=== PATIENT | male | born 1945 | race Hispanic/Latino ===

== ENCOUNTER → 2017-08-10 | Outpatient (CLI) | payer OTHER, MEDICARE ==
[~2017-08-10] MED LIST: AMLO10TA2 PO; ASPI-1181 PO; CLON0.2T PO; CLOP75TA14 PO; FURO20TA4 PO; HYDR12.530 PO; LISI-613 PO; METF10004 PO; METO-409 PO
[2017-08-10 10:11] LABS: CREATININE 2.1 mg/dL (0.5-1.5); PHOSPHORUS 3.4 mg/dL (2.5-4.9)
[2017-08-10 10:27] LABS: EOSINOPHILS % (AUTO) 1.7 % (0.0-8.0); HEMATOCRIT 35.5 % (42-54); LYMPHOCYTES % (AUTO) 13.5 % (21.0-51.0); MEAN CORPUSCULAR HEMOGLOBIN 28.4 pg (27.0-33.0); MEAN CORPUSCULAR HGB CONC 33.9 g/dL (32.0-36.0); MEAN CORPUSCULAR VOLUME 83.8 fL (79-99); MONOCYTES % (AUTO) 6.9 % (3.0-13.0); NEUTROPHILS % (AUTO) 76.9 % (40.0-77.0); PLATELET COUNT (AUTO) 206 K/uL (130-400); RED BLOOD CELL COUNT(AUTO) 4.23 MIL/uL (4.50-6.20); RED CELL DISTRIBUTION WIDTH 15.8 % (11.0-15.5); WHITE BLOOD COUNT (AUTO) 10.3 K/uL (4.8-10.8)
== END | disposition home or self-care (01) ==
LOC: LAB 09:24
PROVIDERS: ATTEND Internal Medicine Nephrology
DX: N18.3 Chronic kidney disease, stage 3 (moderate) (principal); D63.1 Anemia in chronic kidney disease
CPT/HCPCS: 36415; 80048; 84100; 85025

== ENCOUNTER → 2017-08-13 | Outpatient (CLI) | payer OTHER, MEDICARE | END | disposition home or self-care (01) | LOC: LAB 12:49 | PROVIDERS: ATTEND Internal Medicine Cardiovascular Disease | DX: I50.20 Unspecified systolic (congestive) heart failure (principal); I73.9 Peripheral vascular disease, unspecified | CPT/HCPCS: 36415; 83880 ==

== ENCOUNTER → 2017-08-29 | Outpatient (CLI) | payer OTHER, MEDICARE | END | disposition home or self-care (01) | LOC: RAH 08:19 | PROVIDERS: ATTEND Internal Medicine Cardiovascular Disease | DX: I50.20 Unspecified systolic (congestive) heart failure (principal) | CPT/HCPCS: 93306 ==

== ENCOUNTER 2017-09-25 11:06 | Inpatient (IN) | payer OTHER, MEDICARE ==
[2017-09-25] VITALS (17 sets, daily range): BP systolic 116–162; BP diastolic 60–92
[~2017-09-25] VITALS: Ht 170.2 cm; Wt 83.1 kg
[2017-09-25] MEDS ORDERED: METOPROLOL TARTRATE 1 MG/ML 5ML VIAL IV ONE ×3 (11:10→12:29)
[2017-09-25] MEDS ORDERED: ASPIRIN 81MG TAB.CHEW ONE (11:10)
[2017-09-25] MEDS ORDERED: ISOVUE-370 50ML VIAL IV ONE (11:19)
[2017-09-25] MEDS ORDERED: HEPARIN SODIUM 1000UNIT/ML 10ML VIAL ONE (11:19)
[2017-09-25] MEDS ORDERED: BIVALIRUDIN 250 MG/VIAL IV ONE (11:19)
[2017-09-25] MEDS ORDERED: LIDOCAINE HCL 2% 20ML ONE (11:19)
[2017-09-25] MEDS ORDERED: IOPAMIDOL-370 100 ML VIAL IV ONE (11:19)
[2017-09-25] MEDS ORDERED: NITROGLYCERIN 5 MG/ML 10 ML VIAL IV ONE (11:19)
[2017-09-25 11:21] LABS: BASOPHILS % (AUTO) 1.2 % (0.0-5.0); EOSINOPHILS % (AUTO) 0.9 % (0.0-8.0); HEMATOCRIT 41.1 % (42-54); LYMPHOCYTES % (AUTO) 27.7 % (21.0-51.0); MEAN CORPUSCULAR HEMOGLOBIN 29.1 pg (27.0-33.0); MEAN CORPUSCULAR HGB CONC 34.6 g/dL (32.0-36.0); MEAN CORPUSCULAR VOLUME 84.2 fL (79-99); MONOCYTES % (AUTO) 6.8 % (3.0-13.0); NEUTROPHILS % (AUTO) 63.4 % (40.0-77.0); NUCLEATED RED BLOOD CELLS 0.1 % (0.0-0.19); PLATELET COUNT (AUTO) 193 K/uL (130-400); RED BLOOD CELL COUNT(AUTO) 4.88 MIL/uL (4.50-6.20); RED CELL DISTRIBUTION WIDTH 14.8 % (11.0-15.5)
[2017-09-25] MEDS ORDERED: ATROPINE SULFATE 0.1 MG/ML 10 ML SYG IVP ONE (11:24)
[2017-09-25] MEDS ORDERED: DOPAMINE HCL 400 MG/D5%-WATER 0 ML IV ONE (11:24)
[2017-09-25 11:56] LABS: ALBUMIN 3.8 g/dL (3.5-5.0); BILIRUBIN,TOTAL 0.4 mg/dL (0.2-1.0); CREATININE 2.6 mg/dL (0.5-1.5); INR 0.89 (0.85-1.15); MAGNESIUM 1.7 mg/dL (1.80-2.40); PARTIAL THROMBOPLASTIN TIME 25.6 SEC (26.3-35.5); POTASSIUM 4.5 mmol/L (3.5-5.1); PROTHROMBIN TIME 9.4 SEC (9.6-11.6); TOTAL PROTEIN, SERUM 8.1 g/dL (6.0-8.3)
[2017-09-25] MEDS ORDERED: MORPHINE SULFATE 2 MG/ML 1ML SYG ONE ×4 (12:08→13:35)
[2017-09-25] MEDS ORDERED: HYDRALAZINE HCL 20 MG/ML VIAL ONE (12:19)
[2017-09-25] MEDS ORDERED: NITROGLYCERIN 50 MG/D5% WATER 1 BOT ONE (12:21)
[2017-09-25] MEDS ORDERED: KETOROLAC TROMETHAMINE 30MG/ML ONE (12:37)
[2017-09-25] MEDS ORDERED: SODIUM CHLORIDE 0.9% 1000ML 1,000 ML IV SCH (13:24)
[2017-09-25] MEDS ORDERED: MORPHINE SULFATE 5 MG/ML VIAL IVP SCH ×3 (13:30→15:15)
[2017-09-25] MEDS ORDERED: LIDOCAINE HCL-MPF 1% 2ML VIAL IV PRN (13:30)
[2017-09-25] MEDS ORDERED: POTASSIUM CHLORIDE 20MEQ/100ML 100 ML IV PRN (13:30)
[2017-09-25] MEDS ORDERED: ACETAMINOPHEN-CODEINE 300/30MG TAB PO PRN ×2 (13:30)
[2017-09-25] MEDS ORDERED: ONDANSETRON HCL MDV 20ML 2 MG/ML VIAL IVP PRN (13:30)
[2017-09-25] MEDS ORDERED: TEMAZEPAM 30 MG CAP PO PRN (13:30)
[2017-09-25] MEDS ORDERED: NITROGLYCERIN 50 MG/D5% WATER 1 BOT IV PRN (13:30)
[2017-09-25] MEDS ORDERED: ONDANSETRON HCL MDV 20ML 2 MG/ML VIAL IVP SCH (13:30)
[2017-09-25] MEDS ORDERED: CLOPIDOGREL BISULFATE 300 MG TAB PO SCH (13:30)
[2017-09-25] MEDS ORDERED: MAG HYDROX/AL HYDROX/SIMETH ES 30 ML SUSP UDCUP ONE (13:38)
[2017-09-25] MEDS ORDERED: LIDOCAINE HCL 2% VISCOUS 15 ML UDCUP ONE (13:38)
[2017-09-25] MEDS ORDERED: ONDANSETRON HCL 4 MG/2 ML VIAL ONE (13:54)
[2017-09-25] MEDS ORDERED: CLOPIDOGREL BISULFATE 300 MG TAB ONE (14:07)
[2017-09-25] MEDS ORDERED: AMLO10TA2 PO (15:12)
[2017-09-25] MEDS ORDERED: METO-409 PO (15:12)
[2017-09-25] MEDS ORDERED: METF10004 PO (15:12)
[2017-09-25] MEDS ORDERED: FURO20TA4 PO (15:12)
[2017-09-25] MEDS ORDERED: CLON0.2T PO (15:12)
[2017-09-25] MEDS ORDERED: CLOP75TA14 PO (15:12)
[2017-09-25] MEDS ORDERED: ASPI-1181 PO (15:12)
[2017-09-25] MEDS ORDERED: LISI-613 PO (15:12)
[2017-09-25] MEDS ORDERED: HYDR12.530 PO (15:12)
[2017-09-25] MEDS ORDERED: MORPHINE SULFATE 2 MG/ML 1ML SYG IVP SCH (15:15)
[2017-09-25] MEDS: INSULIN HUMULIN R 100 UNIT/ML 3ML SQ SCH ×2 (16:29→20:28)
[2017-09-25] MEDS ORDERED: NITROGLYCERIN 0.4 MG SL TAB SL PRN ×2 (20:00→20:15)
[2017-09-25] MEDS ORDERED: CLONIDINE HCL 0.1 MG TABLET PO PRN ×2 (20:00→20:15)
[2017-09-25] MEDS ORDERED: LACTULOSE 20 GM/30 ML UDCUP PO PRN ×2 (20:00→20:15)
[2017-09-25] MEDS ORDERED: MORPHINE SULFATE 2 MG/ML 1ML SYG IVP PRN (20:00)
[2017-09-25] MEDS ORDERED: ACETAMINOPHEN 325 MG TAB PO PRN ×2 (20:15)
[2017-09-25] MEDS: METOPROLOL TARTRATE 50 MG TAB PO SCH (20:29)
[2017-09-25] MEDS ORDERED: METOCLOPRAMIDE 10 MG/2 ML VIAL IVP PRN (22:45)
[2017-09-25] MEDS ORDERED: MAGNESIUM 2GM PREMIX 50ML 50 ML IV PRN (22:45)
[2017-09-25] MEDS ORDERED: MAGNESIUM 2GM PREMIX 50ML 50 ML IV ONE (22:53)
[2017-09-26] VITALS (24 sets, daily range): BP systolic 101–157; BP diastolic 47–80
[2017-09-26 05:06] LABS: HEMATOCRIT 31.6 % (42-54); MEAN CORPUSCULAR HEMOGLOBIN 30.1 pg (27.0-33.0); MEAN CORPUSCULAR HGB CONC 36.1 g/dL (32.0-36.0); MEAN CORPUSCULAR VOLUME 83.4 fL (79-99); PLATELET COUNT (AUTO) 151 K/uL (130-400); RED BLOOD CELL COUNT(AUTO) 3.79 MIL/uL (4.50-6.20); RED CELL DISTRIBUTION WIDTH 14.9 % (11.0-15.5); WHITE BLOOD COUNT (AUTO) 8.9 K/uL (4.8-10.8)
[2017-09-26 05:44] LABS: CREATINE KINASE MB 249.6 ng/mL (0.5-3.6); CREATININE 2.5 mg/dL (0.5-1.5); POTASSIUM 4.8 mmol/L (3.5-5.1)
[2017-09-26] MEDS: INSULIN HUMULIN R 100 UNIT/ML 3ML SQ SCH ×4 (06:09→20:53)
[2017-09-26 06:21] LABS: TROPONIN I 163.15 ng/mL (0.00-0.06)
[2017-09-26] MEDS: ASPIRIN 81MG TAB.CHEW PO SCH (08:40)
[2017-09-26] MEDS: CLOPIDOGREL BISULFATE 75 MG TAB PO SCH (08:40)
[2017-09-26] MEDS: METOPROLOL TARTRATE 50 MG TAB PO SCH ×2 (08:40→20:53)
[2017-09-26] MEDS: PANTOPRAZOLE SODIUM 40 MG TABLET.DR PO SCH (08:40)
[2017-09-27 03:40] VITALS: BP 146/63
[2017-09-27 03:44] LABS: CREATININE 2.5 mg/dL (0.5-1.5); POTASSIUM 4.4 mmol/L (3.5-5.1)
[2017-09-27] MEDS: INSULIN HUMULIN R 100 UNIT/ML 3ML SQ SCH ×2 (06:31→11:30)
[2017-09-27 07:39] VITALS: BP 146/74
[2017-09-27] MEDS: CLOPIDOGREL BISULFATE 75 MG TAB PO SCH (08:25)
[2017-09-27] MEDS: PANTOPRAZOLE SODIUM 40 MG TABLET.DR PO SCH (08:25)
[2017-09-27] MEDS: METOPROLOL TARTRATE 50 MG TAB PO SCH (08:25)
[2017-09-27] MEDS: ASPIRIN 81MG TAB.CHEW PO SCH (08:25)
== END 2017-09-27 13:00 | disposition home or self-care (01) | DRG 246 ==
LOC: EDH 11:06 → INTOOBSV 11:22 → EDHIP 11:22 → OBSVTOIN 11:22 → 2CH 14:26 → 2DH 09-26 23:18
PROVIDERS: ADMIT Family Medicine; ATTEND Family Medicine
PROC: 4A023N7 Measurement of Cardiac Sampling and Pressure, Left Heart, Percutaneous Approach (ICD-10-PCS; principal; 2017-09-25)
PROC: 027034Z Dilation of Coronary Artery, One Artery with Drug-eluting Intraluminal Device, Percutaneous Approach (ICD-10-PCS; 2017-09-25)
PROC: B2131ZZ Fluoroscopy of Multiple Coronary Artery Bypass Grafts using Low Osmolar Contrast (ICD-10-PCS; 2017-09-25)
PROC: B2111ZZ Fluoroscopy of Multiple Coronary Arteries using Low Osmolar Contrast (ICD-10-PCS; 2017-09-25)
PROC: B2151ZZ Fluoroscopy of Left Heart using Low Osmolar Contrast (ICD-10-PCS; 2017-09-25)
DX: T82.855A Stenosis of coronary artery stent, initial encounter (principal); I21.3 ST elevation (STEMI) myocardial infarction of unspecified site; E11.22 Type 2 diabetes mellitus with diabetic chronic kidney disease; E11.51 Type 2 diabetes mellitus with diabetic peripheral angiopathy without gangrene; I12.9 Hypertensive chronic kidney disease with stage 1 through stage 4 chronic kidney disease, or unspecified chronic kidney disease; E78.5 Hyperlipidemia, unspecified; I16.0 Hypertensive urgency; I25.10 Atherosclerotic heart disease of native coronary artery without angina pectoris; I25.2 Old myocardial infarction; I44.7 Left bundle-branch block, unspecified; N18.9 Chronic kidney disease, unspecified; Z87.891 Personal history of nicotine dependence; Z95.1 Presence of aortocoronary bypass graft; Z95.5 Presence of coronary angioplasty implant and graft; Z96.653 Presence of artificial knee joint, bilateral; Y83.9 Surgical procedure, unspecified as the cause of abnormal reaction of the patient, or of later complication, without mention of misadventure at the time of the procedure; Y92.89 Other specified places as the place of occurrence of the external cause; Z28.21 Immunization not carried out because of patient refusal
CPT/HCPCS: 36415; 71045; 80048; 80053; 80061; 82550; 82553; 82947; 82948; 83735; 83874; 84484; 85025; 85027; 85610; 85730; 92978; 93005; 93459; C1725; C1769; C1887; C1894; C9600; J0360; J0461; J0583; J1265; J1644; J1815; J1885; J2405; J3475; J3490; J7030; Q9967

== ENCOUNTER → 2017-11-08 | Outpatient (CLI) | payer MEDICARE, OTHER ==
[~2017-11-08] MED LIST changes: -METF10004 PO
[2017-11-08 10:21] LABS: HEMATOCRIT 37.7 % (42-54); LYMPHOCYTES % (AUTO) 16.8 % (21.0-51.0); MEAN CORPUSCULAR HEMOGLOBIN 30.3 pg (27.0-33.0); MEAN CORPUSCULAR HGB CONC 35.1 g/dL (32.0-36.0); MEAN CORPUSCULAR VOLUME 86.5 fL (79-99); MONOCYTES % (AUTO) 7.6 % (3.0-13.0); NEUTROPHILS % (AUTO) 72.6 % (40.0-77.0); PLATELET COUNT (AUTO) 215 K/uL (130-400); RED BLOOD CELL COUNT(AUTO) 4.36 MIL/uL (4.50-6.20); RED CELL DISTRIBUTION WIDTH 14.6 % (11.0-15.5)
[2017-11-08 10:41] LABS: POTASSIUM 5.9 mmol/L (3.5-5.1)
== END | disposition home or self-care (01) ==
LOC: LAB 09:52
PROVIDERS: ATTEND Internal Medicine Nephrology
DX: Z00.01 Encounter for general adult medical examination with abnormal findings (principal); R79.89 Other specified abnormal findings of blood chemistry
CPT/HCPCS: 36415; 80048; 85025

== ENCOUNTER → 2017-12-14 | Outpatient (CLI) | payer OTHER ==
[2017-12-14 11:52] LABS: BASOPHILS % (AUTO) 1.4 % (0.0-5.0); EOSINOPHILS % (AUTO) 1.9 % (0.0-8.0); HEMATOCRIT 36.9 % (42-54); LYMPHOCYTES % (AUTO) 22.2 % (21.0-51.0); MEAN CORPUSCULAR HEMOGLOBIN 30.3 pg (27.0-33.0); MEAN CORPUSCULAR HGB CONC 34.2 g/dL (32.0-36.0); MEAN CORPUSCULAR VOLUME 88.7 fL (79-99); NEUTROPHILS % (AUTO) 65.5 % (40.0-77.0); PLATELET COUNT (AUTO) 210 K/uL (130-400); RED BLOOD CELL COUNT(AUTO) 4.16 MIL/uL (4.50-6.20); RED CELL DISTRIBUTION WIDTH 14.7 % (11.0-15.5); WHITE BLOOD COUNT (AUTO) 7.6 K/uL (4.8-10.8)
[2017-12-14 12:04] LABS: CREATININE 2.1 mg/dL (0.5-1.5); POTASSIUM 4.7 mmol/L (3.5-5.1)
== END | disposition home or self-care (01) ==
LOC: LAB 10:58
PROVIDERS: ATTEND Internal Medicine Nephrology
DX: Z00.01 Encounter for general adult medical examination with abnormal findings (principal); R79.89 Other specified abnormal findings of blood chemistry
CPT/HCPCS: 36415; 80048; 85025

== ENCOUNTER → 2018-04-10 | Outpatient (CLI) | payer OTHER ==
[~2018-04-10] MED LIST changes: -AMLO10TA2 PO; +AMLO10TA6 PO
[2018-04-10 11:52] LABS: BASOPHILS % (AUTO) 1.1 % (0.0-5.0); EOSINOPHILS % (AUTO) 2.3 % (0.0-8.0); HEMATOCRIT 40.5 % (42-54); LYMPHOCYTES % (AUTO) 17.2 % (21.0-51.0); MEAN CORPUSCULAR HEMOGLOBIN 28.5 pg (27.0-33.0); MEAN CORPUSCULAR VOLUME 86.3 fL (79-99); MONOCYTES % (AUTO) 9.8 % (3.0-13.0); NEUTROPHILS % (AUTO) 69.6 % (40.0-77.0); NUCLEATED RED BLOOD CELLS 0.1 % (0.0-0.19); PLATELET COUNT (AUTO) 138 K/uL (130-400); RED BLOOD CELL COUNT(AUTO) 4.69 MIL/uL (4.50-6.20); RED CELL DISTRIBUTION WIDTH 15.2 % (11.0-15.5); WHITE BLOOD COUNT (AUTO) 8.9 K/uL (4.8-10.8)
[2018-04-10 12:12] LABS: ALBUMIN 3.4 g/dL (3.5-5.0); BILIRUBIN,TOTAL 0.5 mg/dL (0.2-1.0); CREATININE 2.7 mg/dL (0.5-1.5); POTASSIUM 5.3 mmol/L (3.5-5.1); TOTAL PROTEIN, SERUM 7.3 g/dL (6.0-8.3)
[2018-04-10 12:45] LABS: B-TYPE NATRIURETIC PEPTIDE 1930 pg/mL (0-100)
== END | disposition home or self-care (01) ==
LOC: RAH 11:32
PROVIDERS: ATTEND Internal Medicine Cardiovascular Disease
DX: I13.10 Hypertensive heart and chronic kidney disease without heart failure, with stage 1 through stage 4 chronic kidney disease, or unspecified chronic kidney disease (principal); I25.119 Atherosclerotic heart disease of native coronary artery with unspecified angina pectoris; Z72.89 Other problems related to lifestyle; E11.22 Type 2 diabetes mellitus with diabetic chronic kidney disease; N18.3 Chronic kidney disease, stage 3 (moderate); E11.65 Type 2 diabetes mellitus with hyperglycemia; E78.00 Pure hypercholesterolemia, unspecified; Z79.899 Other long term (current) drug therapy
CPT/HCPCS: 36415; 71046; 80053; 83880; 85025

== ENCOUNTER → 2018-06-27 | Outpatient (CLI) | payer OTHER | END | disposition home or self-care (01) | LOC: RAH 08:29 | PROVIDERS: ATTEND Internal Medicine Cardiovascular Disease | DX: I11.9 Hypertensive heart disease without heart failure (principal); I25.119 Atherosclerotic heart disease of native coronary artery with unspecified angina pectoris; J84.10 Pulmonary fibrosis, unspecified; Z72.89 Other problems related to lifestyle | CPT/HCPCS: 71046; 93306 ==

== ENCOUNTER → 2018-10-08 | Outpatient (CLI) | payer OTHER ==
[~2018-10-08] MED LIST changes: -AMLO10TA6 PO; +AMLO10TA7 PO
[2018-10-08 09:52] LABS: HEMOGLOBIN A1C 9.5 % (4.0-6.0)
[2018-10-08 09:59] LABS: ALBUMIN 3.2 g/dL (3.5-5.0); BILIRUBIN,TOTAL 0.4 mg/dL (0.2-1.0); CREATININE 2.4 mg/dL (0.5-1.5); POTASSIUM 4.9 mmol/L (3.5-5.1); TOTAL PROTEIN, SERUM 7.3 g/dL (6.0-8.3)
== END | disposition home or self-care (01) ==
LOC: LAB 09:08
PROVIDERS: ATTEND Internal Medicine
DX: I12.9 Hypertensive chronic kidney disease with stage 1 through stage 4 chronic kidney disease, or unspecified chronic kidney disease (principal); E11.65 Type 2 diabetes mellitus with hyperglycemia; E11.22 Type 2 diabetes mellitus with diabetic chronic kidney disease; N18.3 Chronic kidney disease, stage 3 (moderate); E78.00 Pure hypercholesterolemia, unspecified
CPT/HCPCS: 36415; 80053; 80061; 83036

== ENCOUNTER → 2019-01-27 | Outpatient (CLI) | payer OTHER | END | disposition home or self-care (01) | LOC: RAH 10:17 | PROVIDERS: ATTEND Internal Medicine | DX: J18.9 Pneumonia, unspecified organism (principal); I51.7 Cardiomegaly | CPT/HCPCS: 71046 ==

== ENCOUNTER → 2019-03-05 | Outpatient (CLI) | payer OTHER ==
[2019-03-05 10:04] LABS: ALBUMIN 3.3 g/dL (3.5-5.0); BILIRUBIN,TOTAL 0.5 mg/dL (0.2-1.0); CREATININE 2.6 mg/dL (0.5-1.5); POTASSIUM 4.9 mmol/L (3.5-5.1); TOTAL PROTEIN, SERUM 7.4 g/dL (6.0-8.3)
== END | disposition home or self-care (01) ==
LOC: LAB 09:25
PROVIDERS: ATTEND Internal Medicine Cardiovascular Disease
DX: I10 Essential (primary) hypertension (principal); I25.118 Atherosclerotic heart disease of native coronary artery with other forms of angina pectoris
CPT/HCPCS: 36415; 80053; 80061

== ENCOUNTER → 2019-08-19 | Outpatient (CLI) | payer OTHER | END | disposition home or self-care (01) | LOC: RAH 11:07 | PROVIDERS: ATTEND Internal Medicine | DX: M47.816 Spondylosis without myelopathy or radiculopathy, lumbar region (principal); M25.78 Osteophyte, vertebrae; G95.89 Other specified diseases of spinal cord; I87.8 Other specified disorders of veins | CPT/HCPCS: 72100 ==

== ENCOUNTER → 2019-08-25 | Outpatient (CLI) | payer OTHER ==
[2019-08-25 10:02] LABS: APPEARANCE,URINE Clear (CLEAR); BILIRUBIN,URINE Negative (NEGATIVE); COLOR,URINE Yellow (YELLOW); GLUCOSE, URINE (UA) >=1000 mg/dL (NEGATIVE); KETONES,URINE Negative (NEGATIVE); LEUKOCYTE ESTERASE ,URINE Small (NEGATIVE); NITRATE,URINE Negative (NEGATIVE); OCCULT BLOOD,URINE Negative (NEGATIVE); PROTEIN,URINE POS 2+ mg/dL (NEGATIVE); UROBILINOGEN,URINE 0.2 mg/dL (0.2-1.0)
[2019-08-25 10:06] LABS: BACTERIA,URINE Rare /HPF (None Seen); RBC,URINE 0-1 /HPF (0-1); SQUAMOUS EPITHELIAL CELL,UR Rare /HPF (0-2)
[2019-08-25 10:09] LABS: HEMOGLOBIN A1C 12.4 % (4.0-6.0)
[2019-08-25 10:17] LABS: CREATININE 2.9 mg/dL (0.5-1.5); POTASSIUM 5.1 mmol/L (3.5-5.1)
== END | disposition home or self-care (01) ==
LOC: LAB 09:04
PROVIDERS: ATTEND Internal Medicine
DX: R35.8 Other polyuria (principal); E11.9 Type 2 diabetes mellitus without complications
CPT/HCPCS: 36415; 80048; 81001; 83036; 87088

== ENCOUNTER → 2019-09-19 | Outpatient (CLI) | payer OTHER ==
[2019-09-19 13:22] LABS: EOSINOPHILS % (AUTO) 2.3 % (0.0-8.0); HEMATOCRIT 42.2 % (42-54); LYMPHOCYTES % (AUTO) 19.9 % (21.0-51.0); MEAN CORPUSCULAR HGB CONC 32.9 g/dL (32.0-36.0); MEAN CORPUSCULAR VOLUME 85.1 fL (79-99); MONOCYTES % (AUTO) 10.3 % (3.0-13.0); NEUTROPHILS % (AUTO) 66.2 % (40.0-77.0); PLATELET COUNT (AUTO) 134 K/uL (130-400); RED BLOOD CELL COUNT(AUTO) 4.96 MIL/uL (4.50-6.20); RED CELL DISTRIBUTION WIDTH 12.8 % (11.0-15.5); WHITE BLOOD COUNT (AUTO) 8.8 K/uL (4.8-10.8)
[2019-09-19 13:43] LABS: ALBUMIN 3.2 g/dL (3.5-5.0); BILIRUBIN,TOTAL 0.7 mg/dL (0.2-1.0); CREATININE 2.7 mg/dL (0.5-1.5); POTASSIUM 4.6 mmol/L (3.5-5.1); TOTAL PROTEIN, SERUM 7.4 g/dL (6.0-8.3)
== END | disposition home or self-care (01) ==
LOC: LAB 12:56
PROVIDERS: ATTEND Internal Medicine Cardiovascular Disease
DX: I73.9 Peripheral vascular disease, unspecified (principal)
CPT/HCPCS: 36415; 80053; 80061; 85025

== ENCOUNTER → 2019-09-23 | Outpatient (CLI) | payer OTHER | END | disposition home or self-care (01) | LOC: RAH 13:15 | PROVIDERS: ATTEND Internal Medicine Cardiovascular Disease | DX: I70.202 Unspecified atherosclerosis of native arteries of extremities, left leg (principal) | CPT/HCPCS: 93925 ==

== ENCOUNTER → 2020-03-02 | Outpatient (CLI) | payer OTHER ==
[~2020-03-02] MED LIST changes: -ASPI-1181 PO; +ASPI-1443 PO
[2020-03-02 10:23] LABS: BASOPHILS % (AUTO) 0.7 % (0.0-5.0); EOSINOPHILS % (AUTO) 1.4 % (0.0-8.0); HEMATOCRIT 39.6 % (42-54); LYMPHOCYTES % (AUTO) 18.7 % (21.0-51.0); MEAN CORPUSCULAR HEMOGLOBIN 28.9 pg (27.0-33.0); MEAN CORPUSCULAR HGB CONC 33.1 g/dL (32.0-36.0); MEAN CORPUSCULAR VOLUME 87.2 fL (79-99); MONOCYTES % (AUTO) 10.2 % (3.0-13.0); NEUTROPHILS % (AUTO) 68.7 % (40.0-77.0); PLATELET COUNT (AUTO) 149 K/uL (130-400); RED BLOOD CELL COUNT(AUTO) 4.54 MIL/uL (4.50-6.20); RED CELL DISTRIBUTION WIDTH 13.6 % (11.0-15.5); WHITE BLOOD COUNT (AUTO) 8.6 K/uL (4.8-10.8)
[2020-03-02 10:38] LABS: HEMOGLOBIN A1C 10.3 % (4.0-6.0)
[2020-03-02 10:44] LABS: ALBUMIN 3.4 g/dL (3.5-5.0); BILIRUBIN,TOTAL 0.6 mg/dL (0.2-1.0); CREATININE 2.6 mg/dL (0.5-1.5); POTASSIUM 4.9 mmol/L (3.5-5.1); THYROID STIMULATING HORMONE 9.62 uIU/mL (0.36-3.74); TOTAL PROTEIN, SERUM 7.3 g/dL (6.0-8.3)
== END | disposition home or self-care (01) ==
LOC: LAB 09:44
PROVIDERS: ATTEND Family Medicine
DX: I73.9 Peripheral vascular disease, unspecified (principal)
CPT/HCPCS: 36415; 80053; 80061; 82043; 83036; 84153; 84443; 85025

== ENCOUNTER 2020-03-13 21:08 | Inpatient (IN) | payer OTHER, MEDICARE ==
[~2020-03-13] VITALS: Ht 170.2 cm; Wt 78.4 kg
[2020-03-13 22:01] LABS: BASOPHILS % (AUTO) 0.7 % (0.0-5.0); EOSINOPHILS % (AUTO) 0.4 % (0.0-8.0); HEMATOCRIT 41.3 % (42-54); LYMPHOCYTES % (AUTO) 21.1 % (21.0-51.0); MEAN CORPUSCULAR HEMOGLOBIN 29.2 pg (27.0-33.0); MEAN CORPUSCULAR HGB CONC 34.6 g/dL (32.0-36.0); MEAN CORPUSCULAR VOLUME 84.3 fL (79-99); NEUTROPHILS % (AUTO) 65.4 % (40.0-77.0); PLATELET COUNT (AUTO) 162 K/uL (130-400); RED CELL DISTRIBUTION WIDTH 13.3 % (11.0-15.5); WHITE BLOOD COUNT (AUTO) 9.6 K/uL (4.8-10.8)
[2020-03-13] MEDS ORDERED: NITROGLYCERIN 1GM/1 INCH PACKET TD ONE (22:01)
[2020-03-13] MEDS ORDERED: ASPIRIN 325 MG TABLET ONE (22:01)
[2020-03-13 22:14] LABS: INR 0.93 (0.85-1.15); PARTIAL THROMBOPLASTIN TIME 26.8 SEC (26.3-35.5); PROTHROMBIN TIME 10.1 SEC (9.6-11.6)
[2020-03-13 22:33] LABS: ALBUMIN 3.8 g/dL (3.5-5.0); BILIRUBIN,TOTAL 0.7 mg/dL (0.2-1.0); CREATININE 2.4 mg/dL (0.5-1.5); POTASSIUM 4.7 mmol/L (3.5-5.1); TOTAL PROTEIN, SERUM 7.9 g/dL (6.0-8.3)
[2020-03-14] MEDS ORDERED: LACTULOSE 20 GM/30 ML UDCUP PO PRN (01:45)
[2020-03-14] MEDS ORDERED: BENZONATATE 100 MG CAPSULE PO PRN (01:45)
[2020-03-14] MEDS ORDERED: DIPHENHYDRAMINE HCL 25 MG CAPSULE PO PRN (01:45)
[2020-03-14] MEDS ORDERED: ONDANSETRON HCL 4 MG/2 ML VIAL IV PRN (01:45)
[2020-03-14] MEDS ORDERED: MAG HYDROX/AL HYDROX/SIMETH 30 ML, LIDOCAINE HCL 2% VISCOUS 30 ML, DIPHENHYDRAMINE HCL ... PO PRN ×6 (01:45→02:45)
[2020-03-14] MEDS ORDERED: MAG HYDROX/AL HYDROX/SIMETH ES 30 ML SUSP UDCUP PO PRN (01:45)
[2020-03-14] MEDS ORDERED: MORPHINE SULFATE 4 MG/1ML SYG IV PRN (01:45)
[2020-03-14] MEDS ORDERED: ZOLPIDEM TARTRATE 5 MG TAB PO PRN (01:45)
[2020-03-14] MEDS ORDERED: MORPHINE SULFATE 2 MG/ML 1ML SYG IV PRN (01:45)
[2020-03-14] MEDS ORDERED: LIDOCAINE HCL 2% VISCOUS 30 ML, MAG HYDROX/AL HYDROX/SIMETH 30 ML, BELLADONNA-PHENOBARB... PO PRN ×3 (01:45)
[2020-03-14] MEDS ORDERED: DiphenhydrAMINE HCL 50 MG/ML VIAL IV PRN (01:45)
[2020-03-14] MEDS ORDERED: ACETAMINOPHEN 325 MG TAB PO PRN ×2 (01:45)
[2020-03-14] MEDS ORDERED: GUAIFENESIN-DM 200/20 MG 10 ML PO PRN (01:45)
[2020-03-14] MEDS ORDERED: NITROGLYCERIN 0.4 MG SL TAB SL PRN (01:45)
[2020-03-14 03:00] VITALS: BP 166/98
[2020-03-14] MEDS: SODIUM CHLORIDE 0.9% 1000ML 1,000 ML IV SCH ×2 (03:00→11:26)
[2020-03-14] MEDS: LEVOTHYROXINE 75 MCG TABLET PO SCH (06:56)
[2020-03-14] MEDS: INSULIN LISPRO 100 UNIT/ML 3ML SQ SCH ×4 (06:56→21:13)
[2020-03-14 07:40] LABS: BASOPHILS % (AUTO) 0.8 % (0.0-5.0); EOSINOPHILS % (AUTO) 0.8 % (0.0-8.0); HEMATOCRIT 40.8 % (42-54); MEAN CORPUSCULAR HGB CONC 34.3 g/dL (32.0-36.0); MEAN CORPUSCULAR VOLUME 84.5 fL (79-99); MONOCYTES % (AUTO) 13.1 % (3.0-13.0); PLATELET COUNT (AUTO) 161 K/uL (130-400); RED BLOOD CELL COUNT(AUTO) 4.83 MIL/uL (4.50-6.20); RED CELL DISTRIBUTION WIDTH 13.3 % (11.0-15.5)
[2020-03-14 07:50] VITALS: BP 142/93
[2020-03-14] MEDS ORDERED: METFORMIN HCL 500 MG TAB.SR.24H PO SCH (08:00)
--- NOTE | 2020-03-14 08:00 | NUR ---
AM ASSESSMENT PT AWAKE, ALERT, AND ORIENTED. DENIES CHEST PAIN OR SOB. STATES FEELING WEAK, ASSISTANCE WITH ADLS, FALL PRECAUTIONS. TELEMETRY MONITORING
[2020-03-14 08:55] LABS: ALBUMIN 3.5 g/dL (3.5-5.0); BILIRUBIN,TOTAL 0.6 mg/dL (0.2-1.0); CREATININE 2.3 mg/dL (0.5-1.5); POTASSIUM 5.1 mmol/L (3.5-5.1); THYROID STIMULATING HORMONE 5.18 uIU/mL (0.36-3.74); TOTAL PROTEIN, SERUM 7.5 g/dL (6.0-8.3)
[2020-03-14] MEDS ORDERED: FUROSEMIDE 20 MG TABLET PO SCH (09:00)
[2020-03-14] MEDS ORDERED: METOPROLOL SUCCINATE 50 MG TAB.SR.24H PO SCH (09:00)
[2020-03-14] MEDS ORDERED: CLONIDINE HCL 0.2 MG TABLET PO SCH (09:00)
[2020-03-14] MEDS ORDERED: HYDROCHLOROTHIAZIDE 25 MG TABLET PO SCH (09:00)
[2020-03-14 09:14] LABS: TROPONIN I 2.67 ng/mL (0.00-0.06)
[2020-03-14] MEDS ORDERED: METOPROLOL TARTRATE 25 MG TAB PO SCH ×2 (09:15→21:00)
--- NOTE | 2020-03-14 09:15 | NUR ---
LABS DR GONZALES MADE AWARE OF CARDIAC ENZYMES
--- NOTE | 2020-03-14 10:15 | NUR ---
SPOKE WITH DR SULLIVAN VIA PHONE REGARDING CONSULT WAS MADE AWARE AND STATES HE WILL COME SEE PATIENT, ADDED TO HIS LIST AND ALSO U [facility] LIST.
[2020-03-14] MEDS: FAMOTIDINE/PF 20 MG/2 ML VIAL IV SCH (10:25)
[2020-03-14] MEDS: CLONIDINE HCL 0.2 MG TABLET PO SCH ×2 (10:26→20:50)
[2020-03-14] MEDS: HYDRALAZINE HCL 25 MG TABLET PO SCH ×2 (10:26→20:49)
[2020-03-14] MEDS: CLOPIDOGREL BISULFATE 75 MG TAB PO SCH (10:31)
[2020-03-14 11:00] VITALS: BP 169/86
[2020-03-14] MEDS ORDERED: METO-409 PO (11:52)
[2020-03-14] MEDS ORDERED: FURO40TA5 PO (11:54)
[2020-03-14] MEDS ORDERED: HYDR-4153 PO (11:55)
[2020-03-14] MEDS ORDERED: ROSU40TA21 PO (11:58)
[2020-03-14] MEDS ORDERED: METO25TA6 PO (11:59)
[2020-03-14] MEDS ORDERED: METF-446 PO (12:00)
[2020-03-14] MEDS ORDERED: LEVO75TA10 PO (12:01)
[2020-03-14] MEDS: ASPIRIN 81MG TAB.CHEW PO SCH (12:45)
[2020-03-14] MEDS ORDERED: HYDRALAZINE HCL 20 MG/ML VIAL IV PRN (15:00)
[2020-03-14 17:05] LABS: TROPONIN I 1.86 ng/mL (0.00-0.06)
--- NOTE | 2020-03-14 17:06 | NUR ---
LAB CALL PLACED TO LAB REGARDING TI; PER [facility] INSPECTOR, STATES TROPONIN 1.9 AT 16:33. DR SULLIVAN MADE AWARE OF TROPONIN LEVEL
[2020-03-14] MEDS ORDERED: PHARMACY COMMUNICATION MISC SCH ×2 (18:15→19:00)
--- NOTE | 2020-03-14 18:24 | NUR ---
cm note spoke to pt and states lives with spouse, uses walker/cane for ambulation. No home services does own personal care and adls. pt drives. dc plan is back home. Feels safe to return home. No dc needs states will assist as needed. Addendum: 03/14/20 at 1825 by ADAL SINGH CM Amended: Links added.
[2020-03-14] MEDS ORDERED: ENOXAPARIN SODIUM 1 MG/KG SQ SCH (18:30)
[2020-03-14 20:11] VITALS: BP 173/84
[2020-03-14] MEDS ORDERED: ENOXAPARIN SODIUM 80 MG/0.8 ML SQ ONE (20:30)
--- NOTE | 2020-03-14 21:45 | NUR ---
NEW ORDERS THIS NURSE RECEIVED CALL FROM DR. Dru MUELLER REGARDING PATIENT'S POC. NEW ORDERS GIVEN 1)DISCONTINUE METOPROLOL TARTRATE 50MG BID 2) GIVE METOPROLOL SUCCINATE 50 MG X 1 NOW 3)START METOPROLOL SUCCINATE 100MG PO BID 4)START IMDUR 30 MG PO DAILY. ORDERS READ BACK TO DR. Dru MUELLER AND TRANSCRIBED Addendum: 03/14/20 at 2241 by NASRIN RENEE RN RN ORDERS MD Dru MUELLER ALSO GAVE ORDER FOR ANDRES SCAN IN AM ON 03/15/20 AND PATIENT TO BE NPO AFTER MIDNIGHT. ORDERS READ BACK AND TRANSCRIBED.
[2020-03-14] MEDS: METOPROLOL SUCCINATE 50 MG TAB.SR.24H PO SCH (22:32)
--- NOTE | 2020-03-14 22:41 | NUR ---
BP PATIENT IN BED RESTING QUIETLY. ONE TIME DOSE OF METOPROLOL GIVEN PER MD ORDER CURRENT BP 159/78. PATIENT WITH NO C/O PAIN OR HEADACHE. CALL DEVICE WITHIN REACH WILL CONT. TO MONITOR.
[2020-03-15 00:03] VITALS: BP_SYST 108; BP_SYST 147; BP_DIAS 60; BP_DIAS 68
[2020-03-15 00:18] LABS: TROPONIN I 1.03 ng/mL (0.00-0.06)
[2020-03-15 04:01] VITALS: BP 134/66
[2020-03-15 05:27] LABS: HEMATOCRIT 38.3 % (42-54); LYMPHOCYTES % (AUTO) 27.3 % (21.0-51.0); MEAN CORPUSCULAR HEMOGLOBIN 29.2 pg (27.0-33.0); MEAN CORPUSCULAR HGB CONC 34.7 g/dL (32.0-36.0); MONOCYTES % (AUTO) 15.9 % (3.0-13.0); NEUTROPHILS % (AUTO) 54.4 % (40.0-77.0); PLATELET COUNT (AUTO) 173 K/uL (130-400); RED BLOOD CELL COUNT(AUTO) 4.56 MIL/uL (4.50-6.20); RED CELL DISTRIBUTION WIDTH 13.1 % (11.0-15.5); WHITE BLOOD COUNT (AUTO) 9.4 K/uL (4.8-10.8)
[2020-03-15 05:43] LABS: ALBUMIN 3.3 g/dL (3.5-5.0); BILIRUBIN,TOTAL 0.5 mg/dL (0.2-1.0); CREATININE 2.1 mg/dL (0.5-1.5); POTASSIUM 4.5 mmol/L (3.5-5.1); TOTAL PROTEIN, SERUM 7.1 g/dL (6.0-8.3); URIC ACID 8.7 mg/dL (2.6-7.2)
[2020-03-15] MEDS: LEVOTHYROXINE 75 MCG TABLET PO SCH (06:30)
[2020-03-15] MEDS: INSULIN LISPRO 100 UNIT/ML 3ML SQ SCH ×4 (07:30→20:28)
[2020-03-15] MEDS: HYDRALAZINE HCL 25 MG TABLET PO SCH ×2 (08:41→20:27)
[2020-03-15] MEDS: ISOSORBIDE MONO 30MG TAB SR PO SCH ×2 (08:41→09:45)
[2020-03-15] MEDS: CLOPIDOGREL BISULFATE 75 MG TAB PO SCH (08:41)
[2020-03-15] MEDS: FAMOTIDINE/PF 20 MG/2 ML VIAL IV SCH (08:42)
[2020-03-15] MEDS: METOPROLOL SUCCINATE 50 MG TAB.SR.24H PO SCH ×4 (08:42→21:17)
[2020-03-15] MEDS: ASPIRIN 81MG TAB.CHEW PO SCH (08:42)
[2020-03-15] MEDS: CLONIDINE HCL 0.2 MG TABLET PO SCH ×2 (08:45→20:27)
[2020-03-15] MEDS ORDERED: REGADENOSON 0.4 MG/5 ML PF SYG IVP SCH (11:00)
[2020-03-15 16:30] VITALS: BP 162/73
[2020-03-15 20:13] VITALS: BP 173/90
--- NOTE | 2020-03-15 20:30 | NUR ---
MEDS SHIFT ASSESSMENT DONE, PLEASE REFER TO CHART. DUE MEDS ADMINISTERED, TOLERATED WELL. CALL LIGHT WITHIN REACH. WILL MONITOR PT. Addendum: 03/15/20 at 2202 by ROSEANNA FLORES RN RN Amended: Links added.
--- NOTE | 2020-03-15 21:45 | NUR ---
PIV PIV DISCONTINUED WITH CATHETER INTACT. RE-INSERTED PIV G20 TO LEFT HAND,SL. PT TOLERATED WELL. ENCOURAGED TO REST AND SLEEP. CALL LIGHT WITHIN REACH.
[2020-03-15 23:46] VITALS: BP 112/67
--- NOTE | 2020-03-16 02:10 | NUR ---
DISORIENTED HEAD DOFFER WENT TO CHECK ON PT. PT CLAIMS OF FEELING WEAK AND WAS DISORIENTED WHEN HE WOKE UP TO HE CALLED HIS . CHECKED BLOOD [id number]. PROVIDED APPLE JUICE FOR PT TO DRINK. PT IS AAOX3. NO NOTED NEUROLOGIC DEFICITS AT THIS TIME. WILL CONTINUE TO MONITOR.
--- NOTE | 2020-03-16 02:11 | NUR ---
PT'S CALLED AND INQUIRED ABOUT PT'S STATUS. PT'S SPOUSE UPDATED ON PT'S STATUS.
[2020-03-16 03:50] VITALS: BP 143/71
--- NOTE | 2020-03-16 04:07 | NUR ---
TELE TELE MECHANICAL CAD DESIGNER CALLED STATING PT'S HR IS RANDALL ON THE 40'S-50'S. PT IS ASLEEP. NO DISTRESS NOTED. WILL MONITOR CLOSELY.
[2020-03-16 05:11] LABS: EOSINOPHILS % (AUTO) 1.3 % (0.0-8.0); HEMATOCRIT 35.8 % (42-54); LYMPHOCYTES % (AUTO) 14.5 % (21.0-51.0); MEAN CORPUSCULAR HEMOGLOBIN 29.2 pg (27.0-33.0); MEAN CORPUSCULAR HGB CONC 34.6 g/dL (32.0-36.0); MEAN CORPUSCULAR VOLUME 84.2 fL (79-99); MONOCYTES % (AUTO) 13.7 % (3.0-13.0); NEUTROPHILS % (AUTO) 68.9 % (40.0-77.0); PLATELET COUNT (AUTO) 139 K/uL (130-400); RED BLOOD CELL COUNT(AUTO) 4.25 MIL/uL (4.50-6.20); RED CELL DISTRIBUTION WIDTH 13.2 % (11.0-15.5); WHITE BLOOD COUNT (AUTO) 7.2 K/uL (4.8-10.8)
[2020-03-16 05:35] LABS: BILIRUBIN,TOTAL 0.6 mg/dL (0.2-1.0); CREATININE 2.3 mg/dL (0.5-1.5); PHOSPHORUS 3.1 mg/dL (2.5-4.9); POTASSIUM 4.6 mmol/L (3.5-5.1); TOTAL PROTEIN, SERUM 6.4 g/dL (6.0-8.3)
[2020-03-16] MEDS: LEVOTHYROXINE 75 MCG TABLET PO SCH (05:47)
--- NOTE | 2020-03-16 05:49 | NUR ---
MEDS AWAKENED PT FOR DUE MEDS, TOLERATED WELL. PT DENIES ANY CONCERNS AT THIS TIME. PT CLAIMS OF FEELING BETTER. NO DISTRESS NOTED. PCP IN TO CHECK BLOOD SUGAR.
[2020-03-16] MEDS: INSULIN LISPRO 100 UNIT/ML 3ML SQ SCH ×4 (05:54→20:37)
--- NOTE | 2020-03-16 07:30 | NUR ---
ASSESSMENT ENCOUNTERED PT A&OX3 BUT FORGETFUL, CALM COOPERATIVE AND DOES NOT APPEAR TO BE IN ANY DISTRESS NOR ANY NEURO DEFICITS PRESENT. PT DENIES PAIN, SOB, NAUSEA. PT IS AMBULATORY TO CHAIR, GAIT SLOW BUT STEADY WITH ASSIST, CALL LIGHT WITHIN REACH.
[2020-03-16 08:38] VITALS: BP 170/81
[2020-03-16] MEDS: CLOPIDOGREL BISULFATE 75 MG TAB PO SCH (10:10)
[2020-03-16] MEDS: METOPROLOL SUCCINATE 50 MG TAB.SR.24H PO SCH ×2 (10:11→20:36)
[2020-03-16] MEDS: ISOSORBIDE MONO 30MG TAB SR PO SCH (10:11)
[2020-03-16] MEDS: FAMOTIDINE/PF 20 MG/2 ML VIAL IV SCH (10:12)
[2020-03-16] MEDS: HYDRALAZINE HCL 25 MG TABLET PO SCH ×2 (10:12→20:35)
[2020-03-16] MEDS: CLONIDINE HCL 0.2 MG TABLET PO SCH ×2 (10:12→20:36)
[2020-03-16] MEDS: ASPIRIN 81MG TAB.CHEW PO SCH (10:12)
[2020-03-16] MEDS ORDERED: SODIUM BICARBONATE 650 MG TAB PO SCH (11:50)
[2020-03-16 12:58] VITALS: BP 163/86
[2020-03-16 16:30] VITALS: BP 156/66
[2020-03-16 19:59] VITALS: BP_SYST 132; BP_SYST 141; BP_DIAS 47; BP_DIAS 84
[2020-03-16 23:33] VITALS: BP 108/53
[2020-03-17 04:16] VITALS: BP 137/67
[2020-03-17 05:52] LABS: BASOPHILS % (AUTO) 1.1 % (0.0-5.0); EOSINOPHILS % (AUTO) 1.8 % (0.0-8.0); HEMATOCRIT 35.1 % (42-54); MEAN CORPUSCULAR HEMOGLOBIN 29.5 pg (27.0-33.0); MEAN CORPUSCULAR HGB CONC 34.8 g/dL (32.0-36.0); MEAN CORPUSCULAR VOLUME 84.8 fL (79-99); MONOCYTES % (AUTO) 13.3 % (3.0-13.0); NEUTROPHILS % (AUTO) 65.4 % (40.0-77.0); PLATELET COUNT (AUTO) 138 K/uL (130-400); RED BLOOD CELL COUNT(AUTO) 4.14 MIL/uL (4.50-6.20); RED CELL DISTRIBUTION WIDTH 13.3 % (11.0-15.5); WHITE BLOOD COUNT (AUTO) 8.5 K/uL (4.8-10.8)
[2020-03-17] MEDS: INSULIN LISPRO 100 UNIT/ML 3ML SQ SCH ×2 (06:14→10:58)
[2020-03-17] MEDS ORDERED: LEVOTHYROXINE 75 MCG TABLET ONE (06:19)
[2020-03-17 06:24] LABS: BILIRUBIN,TOTAL 0.5 mg/dL (0.2-1.0); CREATININE 2.2 mg/dL (0.5-1.5); POTASSIUM 3.6 mmol/L (3.5-5.1); TOTAL PROTEIN, SERUM 6.4 g/dL (6.0-8.3)
[2020-03-17] MEDS ORDERED: LEVOTHYROXINE 75 MCG TABLET PO SCH (07:30)
[2020-03-17 08:00] VITALS: BP 170/68
[2020-03-17] MEDS ORDERED: FUROSEMIDE 40 MG TABLET PO SCH (09:00)
[2020-03-17] MEDS: CLONIDINE HCL 0.2 MG TABLET PO SCH (09:40)
[2020-03-17] MEDS: ASPIRIN 81MG TAB.CHEW PO SCH (09:40)
[2020-03-17] MEDS: ISOSORBIDE MONO 30MG TAB SR PO SCH (09:41)
[2020-03-17] MEDS: HYDRALAZINE HCL 25 MG TABLET PO SCH ×2 (09:41→13:03)
[2020-03-17] MEDS: METOPROLOL SUCCINATE 50 MG TAB.SR.24H PO SCH (09:41)
[2020-03-17] MEDS: CLOPIDOGREL BISULFATE 75 MG TAB PO SCH (09:42)
[2020-03-17] MEDS: FAMOTIDINE/PF 20 MG/2 ML VIAL IV SCH (09:42)
[2020-03-17 11:48] VITALS: BP 146/74
[2020-03-17 16:00] VITALS: BP 127/58
== END 2020-03-17 17:05 | disposition home or self-care (01) | DRG 280 ==
LOC: EDH 21:08 → EDHIP 03-14 01:36 → 4CH 03-14 03:06
PROVIDERS: ADMIT Internal Medicine; ATTEND Internal Medicine
DX: I21.4 Non-ST elevation (NSTEMI) myocardial infarction (principal); I50.23 Acute on chronic systolic (congestive) heart failure; N17.9 Acute kidney failure, unspecified; I13.0 Hypertensive heart and chronic kidney disease with heart failure and stage 1 through stage 4 chronic kidney disease, or unspecified chronic kidney disease; N18.4 Chronic kidney disease, stage 4 (severe); I16.1 Hypertensive emergency; E87.1 Hypo-osmolality and hyponatremia; I25.110 Atherosclerotic heart disease of native coronary artery with unstable angina pectoris; E11.22 Type 2 diabetes mellitus with diabetic chronic kidney disease; E11.51 Type 2 diabetes mellitus with diabetic peripheral angiopathy without gangrene; E78.5 Hyperlipidemia, unspecified; I44.7 Left bundle-branch block, unspecified; I25.5 Ischemic cardiomyopathy; E87.5 Hyperkalemia; Z95.1 Presence of aortocoronary bypass graft; Z83.3 Family history of diabetes mellitus; Z82.3 Family history of stroke; Z82.49 Family history of ischemic heart disease and other diseases of the circulatory system; I25.2 Old myocardial infarction; Z95.820 Peripheral vascular angioplasty status with implants and grafts
CPT/HCPCS: 36415; 76770; 78452; 80053; 80061; 82550; 82948; 83874; 83930; 83935; 84100; 84300; 84443; 84484; 84550; 85025; 85610; 85730; 93005; 93017; 93306; 93356; 96374; 99291; A9500; G0378; J1650; J2785; J3490

== ENCOUNTER → 2020-03-29 | Outpatient (CLI) | payer MEDICARE, OTHER ==
[~2020-03-29] MED LIST changes: -AMLO10TA7 PO; -ASPI-1443 PO; -FURO20TA4 PO; +FURO40TA5 PO; +HYDR-4153 PO; +LEVO75TA10 PO; -LISI-613 PO; +METF-446 PO; +METO25TA6 PO; +ROSU40TA21 PO
[2020-03-29 12:30] LABS: BASOPHILS % (AUTO) 0.8 % (0.0-5.0); EOSINOPHILS % (AUTO) 0.7 % (0.0-8.0); HEMATOCRIT 41.6 % (42-54); LYMPHOCYTES % (AUTO) 16.7 % (21.0-51.0); MEAN CORPUSCULAR HEMOGLOBIN 29.2 pg (27.0-33.0); MEAN CORPUSCULAR HGB CONC 33.9 g/dL (32.0-36.0); MEAN CORPUSCULAR VOLUME 86.1 fL (79-99); MONOCYTES % (AUTO) 8.2 % (3.0-13.0); NEUTROPHILS % (AUTO) 73.2 % (40.0-77.0); PLATELET COUNT (AUTO) 176 K/uL (130-400); RED BLOOD CELL COUNT(AUTO) 4.83 MIL/uL (4.50-6.20); RED CELL DISTRIBUTION WIDTH 12.9 % (11.0-15.5); WHITE BLOOD COUNT (AUTO) 10.6 K/uL (4.8-10.8)
[2020-03-29 12:54] LABS: ALBUMIN 3.5 g/dL (3.5-5.0); BILIRUBIN,TOTAL 0.6 mg/dL (0.2-1.0); CREATININE 2.4 mg/dL (0.5-1.5); POTASSIUM 5.7 mmol/L (3.5-5.1); TOTAL PROTEIN, SERUM 7.5 g/dL (6.0-8.3)
== END | disposition home or self-care (01) ==
LOC: LAB 10:55
PROVIDERS: ATTEND Family Medicine
DX: E11.69 Type 2 diabetes mellitus with other specified complication (principal); E86.0 Dehydration; R53.81 Other malaise; E16.2 Hypoglycemia, unspecified
CPT/HCPCS: 36415; 80053; 85025

== ENCOUNTER → 2020-04-02 | Outpatient (CLI) | payer OTHER ==
[2020-04-02 15:19] LABS: CREATININE 2.8 mg/dL (0.5-1.5); POTASSIUM 5.2 mmol/L (3.5-5.1)
[2020-04-02 15:24] LABS: ALBUMIN 3.6 g/dL (3.5-5.0); BILIRUBIN,TOTAL 0.5 mg/dL (0.2-1.0); TOTAL PROTEIN, SERUM 7.4 g/dL (6.0-8.3)
== END | disposition home or self-care (01) ==
LOC: LAB 14:07
PROVIDERS: ATTEND Family Medicine
DX: E78.1 Pure hyperglyceridemia (principal); E78.5 Hyperlipidemia, unspecified
CPT/HCPCS: 36415; 80053

== ENCOUNTER → 2020-04-07 | Outpatient (CLI) | payer OTHER ==
[2020-04-07 10:33] LABS: ALBUMIN 3.4 g/dL (3.5-5.0); BILIRUBIN,TOTAL 0.6 mg/dL (0.2-1.0); CREATININE 2.5 mg/dL (0.5-1.5); TOTAL PROTEIN, SERUM 7.1 g/dL (6.0-8.3)
== END | disposition home or self-care (01) ==
LOC: LAB 09:49
PROVIDERS: ATTEND Family Medicine
DX: E78.5 Hyperlipidemia, unspecified (principal)
CPT/HCPCS: 36415; 80053

== ENCOUNTER 2020-04-12 20:13 | Inpatient (IN) | payer OTHER, MEDICARE ==
[~2020-04-12] VITALS: Ht 170.2 cm; Wt 81.7 kg
[2020-04-12] MEDS ORDERED: ASPIRIN 325 MG TABLET ONE (20:15)
[2020-04-12] MEDS ORDERED: NITROGLYCERIN 1GM/1 INCH PACKET TD ONE (20:16)
[2020-04-12 20:35] LABS: BASOPHILS % (AUTO) 0.7 % (0.0-5.0); EOSINOPHILS % (AUTO) 0.3 % (0.0-8.0); HEMATOCRIT 40.5 % (42-54); MEAN CORPUSCULAR HEMOGLOBIN 29.5 pg (27.0-33.0); MEAN CORPUSCULAR HGB CONC 35.8 g/dL (32.0-36.0); MEAN CORPUSCULAR VOLUME 82.5 fL (79-99); NEUTROPHILS % (AUTO) 67.7 % (40.0-77.0); PLATELET COUNT (AUTO) 190 K/uL (130-400); RED BLOOD CELL COUNT(AUTO) 4.91 MIL/uL (4.50-6.20); RED CELL DISTRIBUTION WIDTH 12.8 % (11.0-15.5); WHITE BLOOD COUNT (AUTO) 9.2 K/uL (4.8-10.8)
[2020-04-12 20:55] LABS: INR 0.95 (0.85-1.15); PARTIAL THROMBOPLASTIN TIME 26.6 SEC (26.3-35.5); PROTHROMBIN TIME 10.3 SEC (9.6-11.6)
[2020-04-12 21:03] LABS: ALBUMIN 3.6 g/dL (3.5-5.0); BILIRUBIN,TOTAL 0.8 mg/dL (0.2-1.0); CREATININE 1.7 mg/dL (0.5-1.5); TOTAL PROTEIN, SERUM 7.5 g/dL (6.0-8.3)
[2020-04-12 21:12] LABS: POTASSIUM 2.6 mmol/L (3.5-5.1)
[2020-04-12] MEDS ORDERED: POTASSIUM BICARB/CIT AC 25 MEQ TABLET.EFF ONE (21:46)
[2020-04-12] MEDS ORDERED: ACETAMINOPHEN 325 MG TAB PO PRN (23:00)
[2020-04-12] MEDS ORDERED: ONDANSETRON HCL 4 MG/2 ML VIAL IV PRN (23:00)
[2020-04-12] MEDS ORDERED: HYDRALAZINE HCL 20 MG/ML VIAL IV PRN (23:00)
[2020-04-12] MEDS ORDERED: NITROGLYCERIN 0.4 MG SL TAB SL PRN (23:00)
[2020-04-12] MEDS ORDERED: POTASSIUM CHLORIDE 10% ELIXIR 20 MEQ/15 ML UDCUP PO PRN (23:00)
[2020-04-12] MEDS ORDERED: POTASSIUM CHLORIDE 20 MEQ ERTAB PO PRN (23:00)
[2020-04-12] MEDS ORDERED: POTASSIUM CHLORIDE 10MEQ/100ML 100 ML IV PRN (23:00)
[2020-04-12] MEDS ORDERED: LIDOCAINE HCL-MPF 1% 2ML VIAL IV PRN (23:00)
[2020-04-12 23:20] LABS: MAGNESIUM 1.4 mg/dL (1.80-2.40); THYROID STIMULATING HORMONE 6.1 uIU/mL (0.36-3.74)
[2020-04-12] MEDS ORDERED: MAGNESIUM 2GM PREMIX 50ML 50 ML IV PRN (23:45)
[2020-04-13] VITALS (17 sets, daily range): BP systolic 133–191; BP diastolic 62–101
[2020-04-13] MEDS ORDERED: HEPARIN SODIUM 5000UNIT/ML 1ML VIAL ONE (00:41)
[2020-04-13] MEDS ORDERED: HEPARIN 25000 UNITS/250 ML D5W 250 ML IV ONE (00:41)
[2020-04-13] MEDS ORDERED: HYDRALAZINE HCL 20 MG/ML VIAL ONE (01:10)
[2020-04-13] MEDS ORDERED: MAGNESIUM 2GM PREMIX 50ML 50 ML IV ONE (02:32)
[2020-04-13 03:25] LABS: CREATININE 1.5 mg/dL (0.5-1.5)
[2020-04-13 03:27] LABS: POTASSIUM 2.9 mmol/L (3.5-5.1)
[2020-04-13] MEDS ORDERED: ONDANSETRON HCL 4 MG/2 ML VIAL ONE (04:30)
[2020-04-13 05:18] LABS: BASOPHILS % (AUTO) 0.8 % (0.0-5.0); EOSINOPHILS % (AUTO) 0.4 % (0.0-8.0); HEMATOCRIT 40.8 % (42-54); LYMPHOCYTES % (AUTO) 16.3 % (21.0-51.0); MEAN CORPUSCULAR HGB CONC 35.3 g/dL (32.0-36.0); MEAN CORPUSCULAR VOLUME 82.1 fL (79-99); MONOCYTES % (AUTO) 13.6 % (3.0-13.0); NEUTROPHILS % (AUTO) 68.6 % (40.0-77.0); PLATELET COUNT (AUTO) 144 K/uL (130-400); RED BLOOD CELL COUNT(AUTO) 4.97 MIL/uL (4.50-6.20); RED CELL DISTRIBUTION WIDTH 13.1 % (11.0-15.5); WHITE BLOOD COUNT (AUTO) 9.3 K/uL (4.8-10.8)
[2020-04-13] MEDS ORDERED: POTASSIUM CHLORIDE 20 MEQ ERTAB PO ONE ×2 (06:09→09:13)
[2020-04-13] MEDS ORDERED: ACETAMINOPHEN 325 MG TAB ONE (07:44)
[2020-04-13] MEDS ORDERED: HEPARIN SODIUM 5000UNIT/ML 1ML VIAL SQ PRN (07:45)
[2020-04-13 07:54] LABS: INR 1.1 (0.85-1.15); PARTIAL THROMBOPLASTIN TIME 62.5 SEC (26.3-35.5); PROTHROMBIN TIME 11.8 SEC (9.6-11.6)
[2020-04-13] MEDS: FAMOTIDINE 20MG TAB 20 MG TAB PO SCH (09:00)
[2020-04-13] MEDS: ASPIRIN 81MG TAB.CHEW PO SCH (09:00)
[2020-04-13] MEDS: METOPROLOL TARTRATE 25 MG TAB PO SCH ×2 (09:00→20:59)
[2020-04-13] MEDS ORDERED: NITROGLYCERIN 1GM/1 INCH PACKET TD ONE (09:40)
[2020-04-13] MEDS ORDERED: FAMOTIDINE 20MG TAB 20 MG TAB ONE (09:40)
[2020-04-13] MEDS ORDERED: METOPROLOL TARTRATE 25 MG TAB ONE (09:41)
[2020-04-13 09:59] LABS: BASOPHILS % (AUTO) 0.6 % (0.0-5.0); EOSINOPHILS % (AUTO) 0.2 % (0.0-8.0); HEMATOCRIT 43.2 % (42-54); LYMPHOCYTES % (AUTO) 10.9 % (21.0-51.0); MEAN CORPUSCULAR HEMOGLOBIN 29.1 pg (27.0-33.0); MEAN CORPUSCULAR VOLUME 83.2 fL (79-99); MONOCYTES % (AUTO) 11.4 % (3.0-13.0); NEUTROPHILS % (AUTO) 76.6 % (40.0-77.0); PLATELET COUNT (AUTO) 162 K/uL (130-400); RED BLOOD CELL COUNT(AUTO) 5.19 MIL/uL (4.50-6.20); RED CELL DISTRIBUTION WIDTH 13.2 % (11.0-15.5); WHITE BLOOD COUNT (AUTO) 10.1 K/uL (4.8-10.8)
--- NOTE | 2020-04-13 12:23 | NUR ---
SPOKE WITH SPOUSE FOR DC PLANNING NOTE MADE OF RECENT HOSPTIALIZATION AND CM NOTES AT THAT TIME, WAS INDP OF ADLS, USED A CANE, STILL DROVE. SPOUSE YOLANDA SHEARER PATIENT'S STENGTH HAS DECLINED SIGNIFICANTLY SINCE LAST ADMIT- REQUIRES ASSISTANCE WITH ALL ADLS, NOW USING ROLLING WALKER ALL THE TIME, NO MORE CANE, NO MORE DRIVING, AND NEEDS CONSTANT SUPERVISION SECOND TO WEAKNESS, DCP IS STILL HOME, CM TO FOLLOW. Addendum: 04/13/20 at 1230 by LUCIA CHACON RN CM Amended: Links added.
[2020-04-13] MEDS: ACETAMINOPHEN 325 MG TAB PO PRN ×2 (16:29→23:55)
--- NOTE | 2020-04-13 17:25 | NUR ---
WAS CALLED TO PATIENT'S ROOM AND ADVISED BY THAT PATIENT DOESN'T FEEL VERY WELL AND FEELS LIKE HE IS GOING TO FAINT, FEELS VERY WEAK. DR. HEIN WAS CALLED AND NOTIFIED AND WILL BE COMING TO SEE PT AND ASSESS. DR. HEIN WAS ALSO ADVISED OF THE PATIENT'S SBP 191/101 EARLIER AND HYDRALAZINE 10 MG WERE GIVEN AND THE BP WAS 146/68 AFTER TEN MINUTES AFTER MED GIVEN. HYDROMETER TESTER HAD ADVISED THE NURSING STAFF THAT THE EF WAS LESS THAN THE LAST TIME HE HAD A ECHO.
[2020-04-13 18:10] LABS: PROTHROMBIN TIME 10.8 SEC (9.6-11.6)
[2020-04-13 18:16] LABS: CREATININE 1.6 mg/dL (0.5-1.5); MAGNESIUM 2.1 mg/dL (1.80-2.40); POTASSIUM 3.5 mmol/L (3.5-5.1)
[2020-04-13 19:00] LABS: PARTIAL THROMBOPLASTIN TIME 110.4 SEC (26.3-35.5)
[2020-04-13] MEDS ORDERED: NITROGLYCERIN 50 MG/D5% WATER 1 BOT ONE (19:26)
[2020-04-13] MEDS ORDERED: NITROGLYCERIN 50 MG/D5% WATER 250 BOT IV SCH (20:00)
[2020-04-13] MEDS: HEPARIN 25000 UNITS/250 ML D5W 250 ML IV SCH (20:23)
[2020-04-13] MEDS: INSULIN HUMULIN R 100 UNIT/ML 3ML SQ SCH (20:56)
[2020-04-13] MEDS: ATORVASTATIN CALCIUM 20 MG TABLET PO SCH (20:59)
[2020-04-13] MEDS ORDERED: ATORVASTATIN CALCIUM 20 MG TABLET PO SCH (21:00)
[2020-04-13] MEDS: NITROGLYCERIN 1GM/1 INCH PACKET TD SCH (21:08)
[2020-04-14] VITALS (22 sets, daily range): BP systolic 118–174; BP diastolic 45–107
[2020-04-14 04:52] LABS: BASOPHILS % (AUTO) 0.8 % (0.0-5.0); EOSINOPHILS % (AUTO) 0.5 % (0.0-8.0); HEMATOCRIT 38.5 % (42-54); LYMPHOCYTES % (AUTO) 14.4 % (21.0-51.0); MEAN CORPUSCULAR HEMOGLOBIN 29.5 pg (27.0-33.0); MEAN CORPUSCULAR HGB CONC 34.8 g/dL (32.0-36.0); MEAN CORPUSCULAR VOLUME 84.8 fL (79-99); MONOCYTES % (AUTO) 13.6 % (3.0-13.0); NEUTROPHILS % (AUTO) 70.3 % (40.0-77.0); PLATELET COUNT (AUTO) 159 K/uL (130-400); RED BLOOD CELL COUNT(AUTO) 4.54 MIL/uL (4.50-6.20); RED CELL DISTRIBUTION WIDTH 12.9 % (11.0-15.5); WHITE BLOOD COUNT (AUTO) 7.7 K/uL (4.8-10.8)
[2020-04-14 05:27] LABS: B-TYPE NATRIURETIC PEPTIDE 1000 pg/mL (0-100)
[2020-04-14 05:46] LABS: TROPONIN I 4.09 ng/mL (0.00-0.06)
[2020-04-14] MEDS: NITROGLYCERIN 1GM/1 INCH PACKET TD SCH (06:26)
[2020-04-14] MEDS: INSULIN HUMULIN R 100 UNIT/ML 3ML SQ SCH ×4 (06:27→20:19)
--- NOTE | 2020-04-14 07:30 | NUR ---
CALLED AND WAS GIVEN AN UPDATE AND PATIENT WAS ADVISED. WAS ADVISED THAT DR. MUELLER HAD CALLED AND PLAN FOR CATH WAS DISCUSSED AND LAB RESULTS WERE READ TO DR. MUELLER AND THE CATH WAS CANCELLED. WILL PAGE DR. MICAELA STACY TO ADVISE OF DR. MUELLER'S CONCERN OF THE AM LABS.
--- NOTE | 2020-04-14 08:30 | NUR ---
PT WAS CONCERN OF HIS CONFUSION AND IS AWARE OF HIS CONFUSION AND REQUESTED FOR THE TRIDIL TO BE STOPPED. PT'S REQUEST FOR THE TRIDIL TO BE TURNED OFF AND WAS ACCOMMODATED.
--- NOTE | 2020-04-14 08:55 | NUR ---
DR. STACY HERE AND SPOKE WITH PATIENT AND ADVISED PATIENT THAT HE WAS STABLE ENOUGH TO HAVE HIS HEART CATH AND THAT HE WOULD DISCUSS IT WITH DR. MUELLER. AT PRESENT NO ORDERS NOTED OR GIVEN.
--- NOTE | 2020-04-14 09:30 | NUR ---
PT AND DISCUSSING OF HIS WANTING TO GO HOME BEFORE HE WOULD DECIDE TO HAVE HEART CATH HE WANTS TO GO AND DISCUSS HIS WISHES WITH THE FAMILY. PT IS VERY ADAMANT ABOUT GOING HOME AND WANTING TO TALK TO FAMILY MEMBERS ABOUT HIS WISHES AND THEN COMING BACK TO HAVE THE HEART CATH AFTER HE GOES TO HIS DOCTOR'S APPOINTMENTS WITH DR. STACY AND DR. MUELLER. SPOKE TO AND PATIENT ABOUT DIFFERENT SCENARIOS AND DIFFERENT MEDS THAT HAVE BEEN USED AFTER HEART CATHS. DISCUSSED IN DETAIL THE MEDS USED AND GIVEN PRIOR OR AFTER HEART CATHS.
[2020-04-14] MEDS: ASPIRIN 81MG TAB.CHEW PO SCH (12:22)
[2020-04-14] MEDS: LEVOTHYROXINE 75 MCG TABLET PO SCH (12:22)
[2020-04-14] MEDS: FAMOTIDINE 20MG TAB 20 MG TAB PO SCH (12:22)
[2020-04-14] MEDS: DOCUSATE SODIUM 100 MG CAP PO SCH ×2 (12:23→18:30)
[2020-04-14] MEDS ORDERED: SODIUM CHLORIDE 0.9% 500ML 500 ML IV ONE (14:48)
[2020-04-14] MEDS ORDERED: CLOPIDOGREL BISULFATE 75 MG TAB PO SCH (15:00)
[2020-04-14] MEDS: ACETAMINOPHEN 325 MG TAB PO PRN (16:18)
[2020-04-14] MEDS ORDERED: CLOPIDOGREL BISULFATE 75 MG TAB ONE (16:22)
[2020-04-14 18:18] LABS: INR 0.96 (0.85-1.15); PARTIAL THROMBOPLASTIN TIME 49.5 SEC (26.3-35.5); PROTHROMBIN TIME 10.4 SEC (9.6-11.6)
--- NOTE | 2020-04-14 20:20 | NUR ---
MEDS PT PO MEDICATION GIVEN AT THIS TIME NO COUGHING OR CHOKING NOTED. WILL CONTINUE TO MONITOR.
[2020-04-14] MEDS: ATORVASTATIN CALCIUM 20 MG TABLET PO SCH (20:21)
[2020-04-14] MEDS: SENNOSIDES 8.6 MG TABLET PO SCH (20:21)
--- NOTE | 2020-04-14 20:50 | NUR ---
DESATURATION PT O2 SAT 89 ON 2LPM NASAL CANNULA O2 INCREASED TO 4LPM AND PT ASKED TO TAKE SLOW DEEP BREATHS. PT BILATERAL BREATH SOUNDS ARE COARSE. IV FLUIDS HELD. HR 110-120, RR 20'S [employer] CALLED UPDATED ON PT STATUS. NEW ORDERS RECEIVED AND WILL BE CARRIED OUT.
[2020-04-14] MEDS ORDERED: METOPROLOL TARTRATE 50 MG TAB PO SCH (21:00)
--- NOTE | 2020-04-14 21:10 | NUR ---
NITRO BP 174/98 NITROGLYCERIN RESTARTED AT THIS TIME AT 5MCG/MIN. WILL CONTINUE TO MONITOR.
--- NOTE | 2020-04-14 21:30 | NUR ---
STATUS BP 163/88 O2 SAT 93% BREATH SOUNDS NOT COARSE. WILL CONTINUE TO MONITOR Addendum: 04/14/20 at 2208 by ALYSSIA RIVERS RN RN PT ON 50% VENTIMASK AT THIS TIME.
[2020-04-14] MEDS: HEPARIN 25000 UNITS/250 ML D5W 250 ML IV SCH (21:41)
[2020-04-15] VITALS (18 sets, daily range): BP systolic 114–174; BP diastolic 55–110
[2020-04-15] MEDS: DOCUSATE SODIUM 100 MG CAP PO SCH ×3 (02:30→18:30)
[2020-04-15] MEDS: ACETAMINOPHEN 325 MG TAB PO PRN (02:37)
[2020-04-15 04:16] LABS: APPEARANCE,URINE Cloudy (CLEAR); BILIRUBIN,URINE Negative (NEGATIVE); COLOR,URINE Yellow (YELLOW); GLUCOSE, URINE (UA) TRACE mg/dL (NEGATIVE); KETONES,URINE Negative (NEGATIVE); LEUKOCYTE ESTERASE ,URINE Small (NEGATIVE); NITRATE,URINE Negative (NEGATIVE); OCCULT BLOOD,URINE Negative (NEGATIVE); PROTEIN,URINE 300 mg/dL (NEGATIVE)
[2020-04-15 04:17] LABS: SODIUM,URINE RANDOM 19 mmol/l (40-220)
[2020-04-15 04:29] LABS: BACTERIA,URINE Rare /HPF (None Seen); RBC,URINE None Seen /HPF (0-1); SQUAMOUS EPITHELIAL CELL,UR Rare /HPF (0-2)
[2020-04-15 04:52] LABS: BASOPHILS % (AUTO) 0.3 % (0.0-5.0); EOSINOPHILS % (AUTO) 4.2 % (0.0-8.0); HEMATOCRIT 37.5 % (42-54); LYMPHOCYTES % (AUTO) 4.2 % (21.0-51.0); MEAN CORPUSCULAR HGB CONC 33.6 g/dL (32.0-36.0); MEAN CORPUSCULAR VOLUME 86.4 fL (79-99); NEUTROPHILS % (AUTO) 81.9 % (40.0-77.0); PLATELET COUNT (AUTO) 159 K/uL (130-400); RED BLOOD CELL COUNT(AUTO) 4.34 MIL/uL (4.50-6.20); WHITE BLOOD COUNT (AUTO) 11.3 K/uL (4.8-10.8)
[2020-04-15 05:01] LABS: HEMOGLOBIN A1C 7.3 % (4.0-6.0)
[2020-04-15 05:11] LABS: INR 0.98 (0.85-1.15); PARTIAL THROMBOPLASTIN TIME 60.2 SEC (26.3-35.5); PROTHROMBIN TIME 10.6 SEC (9.6-11.6)
[2020-04-15 05:18] LABS: CREATININE 2.4 mg/dL (0.5-1.5); PHOSPHORUS 4.3 mg/dL (2.5-4.9); POTASSIUM 4.3 mmol/L (3.5-5.1)
[2020-04-15] MEDS: LEVOTHYROXINE 75 MCG TABLET PO SCH ×2 (06:29→16:48)
[2020-04-15] MEDS: INSULIN HUMULIN R 100 UNIT/ML 3ML SQ SCH ×4 (06:30→21:01)
--- NOTE | 2020-04-15 09:00 | NUR ---
DR. STACY HERE AND WAS ADVISED OF MORNING LABS AND WILL AWAIT FURTHER ORDERS FROM DOCTORS.
[2020-04-15] MEDS ORDERED: FUROSEMIDE 10 MG/ML 2ML VIAL IV SCH (09:30)
[2020-04-15] MEDS ORDERED: AMLODIPINE BESYLATE 2.5 MG TAB PO SCH ×2 (09:30→09:45)
[2020-04-15] MEDS: ASPIRIN 81MG TAB.CHEW PO SCH (16:44)
[2020-04-15] MEDS: CLOPIDOGREL BISULFATE 75 MG TAB PO SCH (16:45)
[2020-04-15] MEDS: FAMOTIDINE 20MG TAB 20 MG TAB PO SCH (16:45)
[2020-04-15] MEDS: SENNOSIDES 8.6 MG TABLET PO SCH (16:46)
[2020-04-15] MEDS: HYDRALAZINE HCL 25 MG TABLET PO SCH ×2 (16:48→19:30)
[2020-04-15] MEDS: ISOSORBIDE MONONITRATE 20 MG TABLET PO SCH ×2 (16:49→19:30)
[2020-04-15] MEDS: ATORVASTATIN CALCIUM 20 MG TABLET PO SCH (20:49)
[2020-04-15] MEDS: METOPROLOL TARTRATE 50 MG TAB PO SCH (20:49)
[2020-04-16] VITALS (17 sets, daily range): BP systolic 120–151; BP diastolic 49–100
[2020-04-16] MEDS: ISOSORBIDE MONONITRATE 20 MG TABLET PO SCH (02:48)
[2020-04-16] MEDS: DOCUSATE SODIUM 100 MG CAP PO SCH ×3 (02:48→18:27)
[2020-04-16] MEDS: HYDRALAZINE HCL 25 MG TABLET PO SCH (03:55)
[2020-04-16 04:06] LABS: BASOPHILS % (AUTO) 0.2 % (0.0-5.0); EOSINOPHILS % (AUTO) 1.9 % (0.0-8.0); HEMATOCRIT 37.7 % (42-54); LYMPHOCYTES % (AUTO) 3.7 % (21.0-51.0); MEAN CORPUSCULAR HEMOGLOBIN 28.9 pg (27.0-33.0); MEAN CORPUSCULAR HGB CONC 33.7 g/dL (32.0-36.0); MEAN CORPUSCULAR VOLUME 85.9 fL (79-99); MONOCYTES % (AUTO) 9.2 % (3.0-13.0); NEUTROPHILS % (AUTO) 84.7 % (40.0-77.0); PLATELET COUNT (AUTO) 167 K/uL (130-400); RED BLOOD CELL COUNT(AUTO) 4.39 MIL/uL (4.50-6.20); RED CELL DISTRIBUTION WIDTH 12.9 % (11.0-15.5)
[2020-04-16 04:22] LABS: CREATININE 2.3 mg/dL (0.5-1.5); MAGNESIUM 1.9 mg/dL (1.80-2.40); PHOSPHORUS 3.7 mg/dL (2.5-4.9); POTASSIUM 3.9 mmol/L (3.5-5.1)
[2020-04-16] MEDS: LEVOTHYROXINE 75 MCG TABLET PO SCH (06:27)
[2020-04-16] MEDS: INSULIN HUMULIN R 100 UNIT/ML 3ML SQ SCH ×3 (06:36→16:45)
[2020-04-16] MEDS: METOPROLOL TARTRATE 50 MG TAB PO SCH ×2 (08:14→20:52)
[2020-04-16] MEDS: ASPIRIN 81MG TAB.CHEW PO SCH (08:14)
[2020-04-16] MEDS: SENNOSIDES 8.6 MG TABLET PO SCH (08:14)
[2020-04-16] MEDS: FAMOTIDINE 20MG TAB 20 MG TAB PO SCH (08:15)
[2020-04-16] MEDS: CLOPIDOGREL BISULFATE 75 MG TAB PO SCH (08:15)
--- NOTE | 2020-04-16 08:30 | NUR ---
Dr Lomas at bedside, made aware about AM labs, patient's at bedside. MD updated pt's about pt's condition and prognosis, new orders given, including CM eval for outpatient Hospice Referral. MD instructed not to administer Magnesium Sulfate, as he has ordered Mag Oxide 400 MG PO daily X 3 days
[2020-04-16] MEDS ORDERED: MAGNESIUM OXIDE 400 MG TABLET PO SCH (09:00)
[2020-04-16] MEDS ORDERED: ISOSORBIDE MONO 30MG TAB SR PO SCH (09:00)
--- NOTE | 2020-04-16 09:20 | NUR ---
Inserted 16 Fr Casas cath, as ordered per Dr Lomas, tolerated procedure well. Noted about 150 ML of straw colored urine with some cloudy sediments to bedside drainage bag.
[2020-04-16] MEDS: POTASSIUM CHLORIDE 20 MEQ ERTAB PO SCH ×2 (09:41→20:51)
[2020-04-16] MEDS: HEPARIN SODIUM 5000UNIT/ML 1ML VIAL SQ SCH ×2 (09:43→16:43)
[2020-04-16] MEDS ORDERED: SODIUM CHLORIDE 0.9% 1000ML 1,000 ML IV SCH (10:00)
--- NOTE | 2020-04-16 10:00 | NUR ---
Hospice Referral-Phone call to spouse; left voicemail to contact this worker.
--- NOTE | 2020-04-16 11:00 | NUR ---
HOSPICE-SW met with pt's spouse about order for hospice; provided emotional support. Pt's spouse reported discussion with physician and in agreement with hospice. Spouse provided with information on philosophy of hospice and comfort care; spouse verbalized an understanding. Spouse signed release/choice letter for hospice and in agreement with OOHDNR which was signed and witnessed. Referral faxed to [facility] and will follow up with this worker pending insurance.
[2020-04-16] MEDS ORDERED: HYDRALAZINE HCL 25 MG TABLET PO SCH ×2 (11:30→21:00)
--- NOTE | 2020-04-16 16:00 | NUR ---
Report given to Omar Starks RN, to assume nursing care to the rest of the shift
--- NOTE | 2020-04-16 16:05 | NUR ---
ASSUMED CARE OF PT. RESTING IN BED WITH EYES CLOSED, RESP.'S EVEN AND UNLABORED. HI-FLOW O2 AT 25L/NC, 50% FIO2. SPOUSE AT BEDSIDE. CALL LIGHT WITHIN REACH.
--- NOTE | 2020-04-16 18:25 | NUR ---
RESTING IN BED WITH EYES CLOSED, RESP.'S EVEN AND UNLABORED. HI-FLOW O2 IN PLACE AT 25L/NC, 50%FIO2. SR-75, O2 SAT-95%, RR-20/MIN. SPOUSE AT BEDSIDE. CALL LIGHT WITHIN REACH.
--- NOTE | 2020-04-16 18:55 | NUR ---
REPORT TO JONNATHAN LORA RN AT [facility].
--- NOTE | 2020-04-16 19:14 | NUR ---
EMS TRANSPORT REQUESTED.
[2020-04-16] MEDS: ATORVASTATIN CALCIUM 20 MG TABLET PO SCH (20:52)
--- NOTE | 2020-04-16 23:39 | NUR ---
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 Patient on 15L with oxygen saturation of 98%. Patient vital signs stable . IV removed , telepack removed . Casas remains in place. at bedside . Patient left unit via stretcher at 2335.
== END 2020-04-16 23:35 | disposition hospice, home (50) | DRG 280 ==
LOC: EDH 20:13 → OBSVTOIN 22:51 → EDHIP 22:51 → 2DH 04-13 11:15
PROVIDERS: ADMIT Internal Medicine; ATTEND Internal Medicine
DX: I21.4 Non-ST elevation (NSTEMI) myocardial infarction (principal); I50.41 Acute combined systolic (congestive) and diastolic (congestive) heart failure; G93.41 Metabolic encephalopathy; E87.1 Hypo-osmolality and hyponatremia; I16.1 Hypertensive emergency; I13.0 Hypertensive heart and chronic kidney disease with heart failure and stage 1 through stage 4 chronic kidney disease, or unspecified chronic kidney disease; N17.9 Acute kidney failure, unspecified; E03.9 Hypothyroidism, unspecified; D75.1 Secondary polycythemia; E11.51 Type 2 diabetes mellitus with diabetic peripheral angiopathy without gangrene; E11.65 Type 2 diabetes mellitus with hyperglycemia; E78.00 Pure hypercholesterolemia, unspecified; E78.5 Hyperlipidemia, unspecified; E87.5 Hyperkalemia; E83.42 Hypomagnesemia; E87.6 Hypokalemia; I25.110 Atherosclerotic heart disease of native coronary artery with unstable angina pectoris; I70.203 Unspecified atherosclerosis of native arteries of extremities, bilateral legs; E11.22 Type 2 diabetes mellitus with diabetic chronic kidney disease; I25.2 Old myocardial infarction; I44.7 Left bundle-branch block, unspecified; I50.82 Biventricular heart failure; N18.30 Chronic kidney disease, stage 3 unspecified; Z79.82 Long term (current) use of aspirin; Z79.899 Other long term (current) drug therapy; Z95.1 Presence of aortocoronary bypass graft; I25.5 Ischemic cardiomyopathy
CPT/HCPCS: 36415; 71045; 76770; 80048; 80053; 80061; 81001; 82550; 82948; 83036; 83735; 83874; 83880; 84100; 84300; 84443; 84484; 85025; 85610; 85730; 87088; 93005; 93306; 93356; 99291; A4344; G0378; J0360; J1644; J1815; J2405; J3475; J3490; J7040